=== PATIENT | female | born 2000 | race Two or more races ===

== ENCOUNTER 2024-05-30 22:09 | Emergency (ER) | payer MEDICAID, SELFPAY ==
[2024-05-30 22:11] VITALS: BMI 48.8
[2024-05-30 22:15] VITALS: BP 126/85; PULSE 85; RESP 19; TEMP 37.1; O2SAT 98
--- NOTE | 2024-05-30 22:20 | EDNOTE_ITS ---
ED Animal Bite RME/HPI General Chief Complaint: Animal Bite Stated Complaint: BIT BY CAT LEFT FINGER Time Seen by Provider: 05/30/24 22:12 Source: patient Arrival date/time: 05/30/24 22:09 24-year-old female presents emergency department complaining of cat bite to left second digit. Patient unsure if she is up-to-date with tetanus vaccine. Patient reports cat is her own and denies any abnormal behavior. Mode of arrival: ambulatory Limitations: no limitations Related Data Previous Rx's ?Medication ?Instructions ?Recorded amoxicillin 875 mg-potassium 1 tab PO Q12H #10 tabs 01/20/23 clavulanate 125 mg tablet ferrous sulfate 325 mg (65 mg 325 mg PO BID #60 tabs 01/20/23 iron) tablet hydrocodone 5 mg-acetaminophen 325 1 tab PO Q6H PRN pain #20 tabs 01/20/23 mg tablet levothyroxine 100 mcg capsule 100 mcg PO QDAY #90 caps 01/20/23 amoxicillin 875 mg-potassium 1 tab PO BID 7 days #14 tabs 05/30/24 clavulanate 125 mg tablet Allergies Allergy/AdvReac Type Severity Reaction Status Date / Time latex Allergy Mild Hives Verified 01/20/23 19:58 Review of Systems Review of Systems Systems Reviewed: All systems reviewed, normal except as documented Constitutional Constitutional: Reports system reviewed and no additional complaints, except as documented, Denies body ache(s), Denies chills and Denies fever(s) Eyes Eyes: Reports system reviewed and no additional complaints, except as documented and Denies change in vision ENT Ears, Nose, Mouth, and Throat: Reports system reviewed and no additional complaints, except as documented, Denies disequilibrium, Denies dizziness, Denies sore throat and Denies vertigo Cardiovascular Cardiovascular: Reports system reviewed and no additional complaints, except as documented, Denies chest pain and Denies dyspnea Respiratory Respiratory: Reports system reviewed and no additional complaints, except as documented, Denies chest congestion, Denies cough and Denies dyspnea Gastrointestinal Gastrointestinal: Reports system reviewed and no additional complaints, except as documented, Denies abdominal pain, Denies nausea and Denies vomiting Musculoskeletal Musculoskeletal: Reports system reviewed and no additional complaints, except as documented, Denies abnormal gait and Denies arthralgias Integumentary/Breasts Skin/Breast: Reports system reviewed and no additional complaints, except as documented, Denies erythema, Denies rash and Reports wounds (Cat bite) Neurologic Neurologic: Reports system reviewed and no additional complaints, except as documented, Denies abnormal gait, Denies disequilibrium, Denies dizziness and Denies vertigo Past Medical History Past Medical History NEUROLOGIC: Negative Neurological Disorders CARDIAC: Negative Cardiac Disorders or Congestive Heart Failure RESPIRATORY: Negative Chronic Obstructive Pulmonary Disease (COPD) GASTROINTESTINAL: Positive Gastrointestinal Disorders and Gall Bladder Disease (REMOVED 2019) GENITOURINARY: Negative Genitourinary Disorders or Renal Disease MUSCULOSKELETAL: Negative Musculoskeletal Disorders ENDOCRINE: Positive Endocrine Disorders and Hypothyroidism; Negative Diabetes Mellitus Type 1 or Diabetes Mellitus Type 2 HEMATOLOGIC: Negative Blood Disorders PSYCHO/SOCIAL: Positive Anxiety (NO MEDS) and Attention Deficit Hyperactivity Disorder OTHER HISTORY: Positive Hospitalization and Communicable Disease; Negative Autoimmune Disease Family History FAMILY HISTORY: Positive Family Psychiatric Problems (SISTER - ANXIETY), Family Cardiac Disorders (SISTER CONGENITAL HEART PROBLEM, FATHER HEART ATTACK), Family Cancer (PATERNAL GRANDMOTHER-BREAST CA) and Family Surgery (SISTER HEART SURGERY); Negative Family Respiratory Disorders, Family Gastrointestinal Problems or Family Anesthesia Reaction Surgical History SURGICAL: Negative Section Social History SMOKING STATUS: Never smoker SUBSTANCE USE: does not use ED Exam General Limitations: Present no limitations General appearance: Present alert and in no apparent distress Head Head exam: Present atraumatic Eye Eye exam: Present normal appearance, PERRL and EOMI ENT ENT exam: Present normal exam, normal oropharynx and mucous membranes moist Neck Neck exam: Present normal inspection, full ROM and trachea midline Chest Chest inspection: Present normal inspection and symmetric chest wall rise Respiratory Respiratory exam: Present normal lung sounds bilaterally Cardiovascular Cardiovascular exam: Present regular rate, normal rhythm and normal heart sounds Abdominal Exam Abdominal exam: Present soft and normal bowel sounds Extremities Exam Extremities exam: Present normal inspection and full ROM Expanded Upper Extremity Exam Hand L/R front image: 2 1. abrasion (Small superficial abrasion with no active bleeding) Vascular exam: Normal capillary refill Back Exam Back exam: Present normal inspection and full ROM Neurological Exam Neurological exam: Present alert, oriented X3 and CN II-XII intact Psychiatric Psychiatric exam: Present normal affect and normal mood Skin Skin exam: Present warm, dry and normal color Course Quality Measures none Orders Category Date Time Status Wound Care [Wound Care] NOW Care 05/30/24 22:20 Completed Tet,Diphth,Pertuss(Acell)-Tdap [Boostrix Vacc] Med 05/30/24 22:20 Discontinued 0.5 ml IMI .ONCE ONE Vital Signs Vital signs: Vital Signs Temperature 98.8 F 05/30/24 22:15 Pulse Rate 85 05/30/24 22:15 Respiratory Rate 19 05/30/24 22:15 Blood Pressure 126/85 H 05/30/24 22:15 Pulse Oximetry (%) 98 05/30/24 22:15 Oxygen Delivery Method Room Air 05/30/24 22:15 98% room air within normal limits Animal Bite MDM Narrative MDM Narrative:: 24-year-old female presents emergency department complaining of cat bite to left second digit. Patient unsure if she is up-to-date with tetanus vaccine. Patient reports cat is her own and denies any abnormal behavior. Cat bite was superficial with 1 small abrasion to left second digit. Patient's left hand neurovascularly intact. Patient given tetanus vaccine and discharged home on Augmentin antibiotic Patient instructed to follow-up with primary care provider in 24 to 48 hours and return to emergency department for any worsening symptoms or as needed. Patient data External records reviewed:: [facility] previous records Clinical information provided by:: patient Social determinants that could affect healthcare access:: none Patient has the following chronic illnesses:: See chart How is presenting disease/condition affected by chronic disease/condition?: u neffected by Evaluation data The following diagnostics were reviewed and interpreted by me:: other (specify) (N/A) Lab and/or radiology exams considered but not ordered:: N/A Interpretation Summary: N/A Medications / Prescriptions Medications or Prescriptions considered but not ordered:: Ordered Medication administrations:: Medication Administration History Discontinued Medications Diphtheria/Tetanus/Acell Pertussis (Diphth,Pertuss(Acell),Tet Vac 0.5 Ml Vial) 0.5 ml IMi .ONCE ONE Stop: 05/30/24 22:21 Last Admin: 05/30/24 22:32 Dose: 0.5 ml Documented By: OA Given Consultations Consultation(s) initiated? (list below): No Diagnosis Differential diagnosis animal bite: cat bite Most likely diagnosis given after review of the tests above:: Cat bite Admission Indicated Admission indicated?: not indicated Admission Request Was there a request for admission?: No Disposition Plan Disposition Plan: Discharge Discharge Attestation Discharge Attestation: The patient and all family members were given an opportunity to ask questions and understood the discharge instructions. Discharge instructions specifically effects, indications for sooner follow up or return to the emergency department, and the expected course of current diagnosis. Patient condition: Stable Discharge Plan Plan Patient Disposition: HOME (Self Care) Disposition Comment: Stable Prescriptions/Referrals Prescriptions/Med Rec: New amoxicillin-pot clavulanate 875-125 mg tablet 1 tab PO BID 7 Days Qty: 14 0RF No Action levothyroxine 100 mcg capsule 100 mcg PO QDAY Qty: 90 3RF amoxicillin-pot clavulanate 875-125 mg tablet 1 tab PO Q12H Qty: 10 0RF hydrocodone-acetaminophen 5-325 mg tablet 1 tab PO Q6H MDD 4 PRN (Reason: pain) Qty: 20 0RF ferrous sulfate 325 mg (65 mg iron) tablet 325 mg PO BID Qty: 60 1RF Problem List Clinical Impression: Cat bite Patient/Caregiver Discharge Instructions Education Materials: ED Cat Bite Additional Instructions: Take medication as prescribed. Follow-up with primary care provider in 2 to 3 days. Return to the emergency department for any worsening signs of infection or as needed. Print Language: [place]an Stand Alone Forms: Althea Award Info., Patient Portal Info Letter PA/EDUCATION ADMINISTRATIVE ASSISTANT Supervising Physician PA/NUNO Supervising Physician: Dr. Parks
[2024-05-30] MEDS: DIPHTH,PERTUSS(ACELL),TET VAC 0.5 ML VIAL IMi (22:32)
== END 2024-05-30 22:38 | disposition home or self-care (01) ==
LOC: SERX 23:39
PROVIDERS: Emergency Provider Emergency Medicine; PCP Nurse Practitioner Family
DX: S60.411A Abrasion of left index finger, initial encounter (principal); W55.01XA Bitten by cat, initial encounter; Z23 Encounter for immunization
CPT/HCPCS: 90471; 90715; 99282

== ENCOUNTER → 2024-06-25 23:35 | Emergency (ER) | payer MEDICAID, SELFPAY ==
--- NOTE | 2024-06-25 23:44 | PC.NURSE ---
WHILE PUTTING PT IN , SHE DECIDED NOT TO BE SEEN.
== END | disposition left against medical advice (07) ==
PROVIDERS: Emergency Provider Emergency Medicine
DX: Z53.21 Procedure and treatment not carried out due to patient leaving prior to being seen by health care provider (principal)

== ENCOUNTER 2025-02-10 00:38 | Emergency (ER) | payer MEDICAID, SELFPAY ==
[2025-02-10 00:39] VITALS: BMI 41.3
--- NOTE | 2025-02-10 01:16 | PC.NURSE ---
LAURE PT COMES UP TO FIG CAPRIFIER STATING SHE WILL SEE HER PRIMARY CARE IN THE MORNING
== END 2025-02-10 01:17 | disposition left against medical advice (07) ==
LOC: SERX 01:58
PROVIDERS: Emergency Provider Emergency Medicine
DX: Z53.21 Procedure and treatment not carried out due to patient leaving prior to being seen by health care provider (principal)
CPT/HCPCS: 99282

== ENCOUNTER 2025-04-26 12:34 | Emergency (ER) | payer MEDICAID, SELFPAY ==
[2025-04-26 12:34] VITALS: BMI 39.6
[2025-04-26 12:50] VITALS: BP 112/84; PULSE 99; RESP 19; TEMP 37.2; O2SAT 98
--- NOTE | 2025-04-26 13:06 | XR_ITS ---
Examination: Abdomen sonogram, Limited Date and time of exam: April 26, 2025, 1336 hours INDICATIONS: Onset epigastric pain today Technique: Real-time spence scale transabdominal sonographic images of the upper abdomen obtained. Findings: No diagnostic visualization gallbladder Common bile duct 0.3 cm no stones Pancreatic head 2.2 cm Liver 14.2 cm lobular contour fatty infiltration Normal hepatopetal portal venous flow Patent IVC IMPRESSION: No diagnostic visualization of gallbladder No common bile duct stones Suspect primary Protos low-grade disease
--- NOTE | 2025-04-26 13:07 | EDRME_ITS ---
Rapid Medical Screening Exam [facility] Arrival date/time: 04/26/25 12:34 23-year-old female with history of hypothyroidism as well as being on Zepbound presents to the emergency department complaints of upper abdominal pain and chest pain patient worsened to onset yesterday. Chief Complaint: Chest Pain Time Seen by Provider: 04/26/25 13:39 Vital signs: Vital Signs Temperature 99.0 F 04/26/25 12:50 Pulse Rate 99 04/26/25 12:50 Respiratory Rate 19 04/26/25 12:50 Blood Pressure 112/84 04/26/25 12:50 Pulse Oximetry (%) 98 04/26/25 12:50 Oxygen Delivery Method Room Air 04/26/25 12:50
[2025-04-26] MEDS: IBUPROFEN TAB 400 MG TABLET 800 MG PO (13:11)
[2025-04-26] MEDS: ONDANSETRON ODT 4 MG TABRAP PO (13:11)
[2025-04-26 13:55] LABS: Collection Type, Urine Clean Catch
[2025-04-26 13:56] LABS: Basophils # (Auto) 0.0 Thou/mm3 (0.0-0.2); Basophils % (Auto) 0 % (0-2.5); Eosinophils # (Auto) 0.1 Thou/mm3 (0.0-0.5); Eosinophils % (Auto) 0 % (0-10); Hematocrit 39.7 % (36.0-46.0); Hemoglobin 13.8 g/dL (12.0-16.0); Immature Granulocytes Auto 0.02 Thou/mm3 (0.00-0.00); Lymphocytes # (Auto) 1.3 Thou/mm3 (1.0-4.8); Lymphocytes % (Auto) 10 % (10-50); Mean Corpuscular HGB Conc 34.8 g/dl (31.0-37.0); Mean Corpuscular Hemoglobin 29.6 pg (25.0-35.0); Mean Corpuscular Volume 85 fL (80-100); Monocytes # (Auto) 0.6 Thou/mm3 (0.0-0.8); Monocytes % (Auto) 5 % (0-12); Neutrophils # (Auto) 10.1 Thou/mm3 (1.8-7.7); Neutrophils % (Auto) 84 % (37-80); Nucleated Red Blood Cell # 0.00 Thou/mm3 (0.00-0.00); Nucleated Red Blood Cell % 0 /100 WBC (0); Platelet Count 247 Thou/mm3 (140-440); RDW Standard Deviation 37.6 fL (36.4-46.3); Red Blood Count 4.67 Miln/mm3 (4.00-5.20); White Blood Count 12.1 Thou/mm3 (3.6-11.0)
[2025-04-26 14:08] LABS: HCG Qualitative,Urine Negative
[2025-04-26 14:12] LABS: Bacteria,Urine Rare; Bilirubin,Urine Negative (Negative); Blood,Urine Negative (Negative); Clarity,Urine Clear (Clear/Hazy); Color,Urine Yellow (Lt Yel-Yel); Culture Indicated,Urine Not Indicated; Glucose, Urine Negative (Negative); Ketones,Urine Negative (Negative); Leukocyte Esterase,Urine Negative (Negative); Nitrite,Urine Negative (Negative); PH,Urine 6.0 (5.0-7.0); Protein,Urine Trace (Neg - Trace); RBC,Urine 3 /hpf (0-3); Specific Gravity,Urine 1.026 (1.001-1.035); Squamous Epithelial Cell,Urine 11 /hpf (0-5); Urobilinogen,Urine 2.0 mg/dL (0.0-1.0); WBC,Urine 4 /hpf (0-5)
[2025-04-26 14:15] LABS: Alanine Aminotransferase 22 U/L (10-49); Albumin, Serum 4.8 gm/dL (3.5-5.0); Albumin/Globulin Ratio 1.6 (1.2-2.2); Alkaline Phosphatase 75 U/L (46-116); Anion Gap 10 (7-16); Aspartate Amino Transferase 31 U/L (0-34); BUN/Creatinine Ratio 9 Ratio (12-20); Bilirubin,Total 1.8 mg/dL (0.3-1.2); Blood Urea Nitrogen 7 mg/dL (9-23); Calcium 9.5 mg/dL (8.3-10.6); Calcium (Corrected) 9.5 mg/dL (8.5-10.1); Carbon Dioxide 24.1 mMol/L (20.0-31.0); Chloride 105 mMol/L (98-107); Creatinine (Component) 0.8 mg/dL (0.6-1.3); Estimated Creatinine Clearance 110.7 mL/min (>60); Globulin 3.0 gm/dL (2.3-3.5); Glucose 93 mg/dL (74-106); Lipase 25 U/L (12-53); Osmolality,Calculated 275 (275-295); Potassium 4.1 mMol/L (3.4-5.1); Sodium 139 mMol/L (136-145); Total Protein 7.8 gm/dL (5.7-8.2); Troponin I < 0.002 ng/mL (0.0-0.045); eGFR > 60 See Note
--- NOTE | 2025-04-26 17:15 | EKG_ITS ---
[facility] Test Date: 2025-04-26 Pat Name: LETTY MARTIN Department: Room: - Gender: Female Event Attendant: : 2000 Requested By: Jeronimo Jewell Order Number: [id number] Reading MD: Jeronimo Jewell Measurements Intervals Clark Rate: 69 P: 20 MS: 148 QRS: 23 QRSD: 87 T: 29 QT: 411 QTc: 443 Interpretive Statements SINUS RHYTHM LOW QRS VOLTAGE IN PRECORDIAL LEADS [QRS DEFLECTION < 1.0 mV IN CHEST LEADS] Compared to ECG 01/19/2023 11:44:39 Low QRS voltage now present Sinus tachycardia no longer present Myocardial infarct finding no longer present /store/S0/[id number]/ecg/[id number].pdf
--- NOTE | 2025-04-26 17:16 | PD.EDCHEST ---
ED Chest Pain RME/HPI General Chief Complaint: Chest Pain Stated Complaint: VOMITING WITH CHEST PAIN SINCE THIS AM Time Seen by Provider: 04/26/25 13:39 Arrival date/time: 04/26/25 12:34 RME / HPI RME / HPI narrative: 04/26/25 12:34 23-year-old female with history of hypothyroidism, cholecystectomy, obesity on Zepbound presents to the emergency department complaints of upper abdominal pain radiating to her chest patient which began yesterday when she was laying in bed associated with nausea vomiting without bilious or bloody substances, shortness of breath. Denies diarrhea, urinary symptoms. Patient's LMP was 1 month ago. Family history of hypoplastic heart for her siste Related Data Previous Rx's ?Medication ?Instructions ?Recorded amoxicillin 875 mg-potassium 1 tab PO Q12H #10 tabs 01/20/23 clavulanate 125 mg tablet ferrous sulfate 325 mg (65 mg 325 mg PO BID #60 tabs 01/20/23 iron) tablet hydrocodone 5 mg-acetaminophen 325 1 tab PO Q6H PRN pain #20 tabs 01/20/23 mg tablet levothyroxine 100 mcg capsule 100 mcg PO QDAY #90 caps 01/20/23 famotidine 20 mg tablet (Pepcid) 20 mg PO BID #30 tabs 04/26/25 ondansetron 4 mg disintegrating 4 mg PO Q8H PRN nausea and 04/26/25 tablet vomiting #12 tabs Allergies Allergy/AdvReac Type Severity Reaction Status Date / Time latex Allergy Mild Hives Verified 04/26/25 12:37 ED Exam Narrative Physical exam: Constitutional: Patient alert and oriented. Well appearing. No acute distress. Not toxic appearing. Head: Normocephalic, atraumatic. Eyes: Periorbital regions bilaterally normal to inspection. Conjunctiva clear bilaterally. Sclera anicteric bilaterally. Pupils equal, round, reactive to light bilaterally. Extraocular movements intact bilaterally. Mouth/Throat: Mucous membranes moist. No stridor or muffled voice. No trismus. Handling secretions without difficulty. Airway widely patent. Neck: Supple. Trachea midline. No JVD. No nuchal rigidity. Normal range of motion. Respiratory: Normal effort. No accessory muscle use or respiratory distress. Lungs clear to auscultation bilaterally without rhonchi, wheezes, or crackles. Cardiovascular: RRR. Normal S1/S2. No murmurs or rubs. Radial pulses intact bilaterally. Abdomen: Soft. Non-distended. Positive mild epigastric tenderness to palpation.. No pulsatile mass. No guarding or rebound. Negative Kilpatrick?s sign. Negative McBurney?s point tenderness. Negative Rovsing?s. Back: No midline tenderness or step-offs. No CVA tenderness to palpation bilaterally. Upper Extremities: No gross deformities. Lower Extremities: No gross deformities. No edema or calf tenderness. Neuro: Speech normal. No gross motor or sensory deficits to upper or lower extremities bilaterally. GCS 15. CN II?XII grossly intact. Skin: Warm, dry, normal color. Psych: Normal affect. Cooperative. Normal insight. Course Course Course Narrative: MDM The patient presents with epigastric pain radiating to chest of unclear etiology. Evaluation today has not identified an emergent cause however it may be related to GERD vs gastritis. Differential diagnosis includes musculoskeletal chest pain, gastroenteritis, bronchial pleurisy, costochondritis, and thoracic radiculopathy. Patient's symptoms initially were unrelieved with ibuprofen however her nausea was controlled with Zofran however status post migraine cocktail patient's symptoms have resolved Given the benign abdominal exam and lack of significant risk factors, I have very low suspicion for strangulated or incarcerated hernia (no skin changes or irreducible mass), perforation (no abrupt pain or peritonitis), small bowel obstruction/volvulus (no peritoneal signs), AAA/dissection (no pulsatile mass, extremities warm bilaterally), mesenteric ischemia (no history of vascular disease, atrial fibrillation, postprandial pain, or blood in stool), acute infectious processes such as appendicitis or abscess (no peritonitis), or any other life-threatening disease. Serial abdominal exams were benign throughout the ED stay, and the patient tolerated oral intake without difficulty. Less likely etiologies include: PE: Wells low risk, PERC negative. ACS: HEART Score low risk, suggesting low probability of major adverse cardiac event in the next 6 weeks. Aortic Dissection: Unlikely given palpable pulses, warm extremities bilaterally, and no radiation of pain. Tamponade: Unlikely given absence of hypotension, muffled heart sounds, JVD, friction rub, narrow pulse pressure ?30, low-voltage EKG, or enlarged cardiac silhouette. Endocarditis: Unlikely as no Escobedo criteria present (Candelaria spots, splinter hemorrhages, Osler nodes). CHF: Unlikely given no JVD, peripheral edema, or orthopnea. The patient is clinically well-appearing and stable. Evaluation today does not suggest cardiac ischemia, pulmonary embolism, aortic dissection, or other life-threatening etiology. These diagnoses were considered and excluded clinically and with appropriate studies. Nonetheless, it is understood by both patient and provider that no evaluation can entirely exclude such conditions. I considered CT imaging and admission; however, given the negative workup today, stable appearance, and absence of peritoneal signs, the risks outweigh the benefits at this time. The option of CT scan now versus home observation with close follow-up was discussed extensively with the patient. After reviewing risks?including missed diagnosis, inadequate treatment, worsening illness, disability, or potentially life-threatening consequences?the patient declined CT at this time. This decision is reasonable given the current presentation. The patient has been instructed to return for mandatory re-evaluation within 1 day and to seek care immediately if symptoms persist, worsen, or change in any way. The patient may follow up with their primary care provider or return to the ED as appropriate. The patient appears stable for discharge at this time. Strict ER return precautions advised for any continued, worsening, or new symptoms or any concerns at all. Quality Measures none Orders Category Date Time Status EKG (ED ONLY) *Do not use* NOW Care 04/26/25 17:15 Completed EKG (ED Only) Stat Exams 04/26/25 17:15 Draft US gall bladder Stat Exams 04/26/25 13:06 Completed XR chest 1V Stat Exams 04/26/25 17:37 Completed CBC Stat Lab 04/26/25 10:35 Completed Comprehensive Metabolic Panel Stat Lab 04/26/25 10:35 Completed HCG Qualitative,Urine Stat Lab 04/26/25 13:30 Completed Lipase Stat Lab 04/26/25 10:35 Completed Troponin I Stat Lab 04/26/25 10:35 Completed UA, C/S IF [Urinalysis, C/S if Indicated] Stat Lab 04/26/25 13:30 Completed Ibuprofen Tab [Motrin Tab] Med 04/26/25 13:06 Discontinued 800 mg PO X1 ONE Lidocaine 2% Viscous [Xylocaine 2% Viscous] Med 04/26/25 17:13 Discontinued 15 ml PO X1 ONE Metoclopramide [Reglan] Med 04/26/25 17:13 Discontinued 10 mg PO X1 ONE Ondansetron Odt [Zofran Odt] Med 04/26/25 13:06 Discontinued 4 mg PO X1 ONE mg Hyd/Al Hyd/Meredith Susp [Maalox Susp] Med 04/26/25 17:13 Discontinued 30 ml PO X1 ONE Reevaluation(s) Reevaluation #1: At the time of reassessment, the patient remains alert and oriented ?3 with GCS 15. Vitals are normal, pain is controlled, and the patient is tolerating oral intake without nausea or vomiting. The patient is agreeable to discharge and verbalizes understanding of the diagnosis, studies, treatment plan, medications (including side effects/precautions), and strict ER return precautions as discussed in the ED. All concerns were addressed, and the patient is comfortable with the plan. Serial abdominal exams benign without peritonitis. Vital Signs Vital signs: Vital Signs Temperature 99.0 F 04/26/25 12:50 Pulse Rate 99 04/26/25 12:50 Respiratory Rate 19 04/26/25 12:50 Blood Pressure 112/84 04/26/25 12:50 Pulse Oximetry (%) 98 04/26/25 12:50 Oxygen Delivery Method Room Air 04/26/25 12:50 PROCEDURES: EKG Interpretation #1: Date of EK04/26/25 Time of EK:41 Rate: 69 Interpretation: Interpreted by me EKG Impression: Normal sinus rhythm Additional EKG comment: [address] elevation or T wave inversions good R wave progression Chest Pain MDM Narrative MDM Narrative:: Concern for mild leukocytosis with a white count of 12.1 Lipase within normal limits and troponin undetectable CMP notable for elevated total bilirubin at 1.8 however AST, ALT, alk phos all within normal limits patient has a history of a cholecystectomy doubt acute hepatobiliary obstruction or residual choledocholithiasis Patient data External records reviewed:: [facility] previous records Clinical information provided by:: none Social determinants that could affect healthcare access:: none Patient has the following chronic illnesses:: As noted How is presenting disease/condition affected by chronic disease/condition?: no chronic disease Evaluation data The following diagnostics were reviewed and interpreted by me:: lab results, radiology exam(s) and EKG tracing(s) Lab and/or radiology exams considered but not ordered:: Additional Labs and radiology considered, but not ordered as they were not clinically indicated at this time. Interpretation Summary: As noted Medications / Prescriptions Medications or Prescriptions considered but not ordered:: I considered prescription management (both outpatient prescriptions AND drug treatment in the ER) and decided that this was necessary and was prescribed as charted. Medication administrations:: Medication Administration History Discontinued Medications Al Hydrox/Mg Hydrox/Simethicone (Mg Hyd/Al Hyd/Meredith (Maalox Reg) Susp 30 Ml Udc) 30 ml PO X1 ONE Stop: 04/26/25 17:14 Last Admin: 04/26/25 17:26 Dose: 30 ml Documented By: BY Ibuprofen (Ibuprofen Tab 400 Mg Tablet) 800 mg PO X1 ONE Stop: 04/26/25 13:07 Last Admin: 04/26/25 13:11 Dose: 800 mg Documented By: EF Lidocaine HCl (Lidocaine Viscous 2% 15 Ml Udc) 15 ml PO X1 ONE Stop: 04/26/25 17:14 Last Admin: 04/26/25 17:26 Dose: 15 ml Documented By: BY Metoclopramide HCl (Metoclopramide Liqd 10 Mg/10 Ml Udc) 10 mg PO X1 ONE Stop: 04/26/25 17:14 Last Admin: 04/26/25 17:27 Dose: 10 mg Documented By: BY Ondansetron HCl (Ondansetron Odt 4 Mg Tabrap) 4 mg PO X1 ONE; Protocol Stop: 04/26/25 13:07 Last Admin: 04/26/25 13:11 Dose: 4 mg Documented By: EF As noted Consultations Consultation(s) initiated? (list below): No Diagnosis Chest Pain Differential Diagnosis: chest pain Most likely diagnosis given after review of the tests above:: Undifferentiated abdominal pain and chest pain likely secondary to GERD Admission Indicated Admission indicated?: not indicated Admission Request Was there a request for admission?: No Disposition Plan Disposition Plan: Discharge Discharge Attestation Discharge Attestation: The patient and all family members were given an opportunity to ask questions and understood the discharge instructions. Discharge instructions specifically effects, indications for sooner follow up or return to the emergency department, and the expected course of current diagnosis. Patient condition: Stable Discharge Plan Plan Patient Disposition: HOME (Self Care) Patient condition on transfer: Stable Prescriptions/Referrals Prescriptions/Med Rec: New famotidine [Pepcid] 20 mg tablet 20 mg PO BID Qty: 30 0RF ondansetron 4 mg tablet,disintegrating 4 mg PO Q8H PRN (Reason: nausea and vomiting) Qty: 12 0RF Rx Instructions: 1-2 tabs PO Q8Hr prn nausea or vomit No Action levothyroxine 100 mcg capsule 100 mcg PO QDAY Qty: 90 3RF amoxicillin-pot clavulanate 875-125 mg tablet 1 tab PO Q12H Qty: 10 0RF hydrocodone-acetaminophen 5-325 mg tablet 1 tab PO Q6H MDD 4 PRN (Reason: pain) Qty: 20 0RF ferrous sulfate 325 mg (65 mg iron) tablet 325 mg PO BID Qty: 60 1RF Referrals: Jackie Lucas FNP-C [Primary Care Provider] - In 1 week Problem List Clinical Impression: Chest pain, Abdominal pain Patient/Caregiver Discharge Instructions Education Materials: Abdominal Pain, ED Chest Pain, Uncertain Cause Additional Instructions: Follow up with your primary medical doctor within 24 hours. Return to the Emergency Room immediately for any new, worsening, continuing symptoms or any concerns at all. Return to the Emergency Room within 24 hours if you are unable to follow up with your primary medical doctor within 24 hours. Print Language: Belizean Stand Alone Forms: Althea Award Info., Patient Portal Info Letter PA/NUNO Supervising Physician CHAVEZ/NUNO Supervising Physician: Dr. Wilkins
[2025-04-26] MEDS: LIDOCAINE VISCOUS 2% 15 ML UDC PO (17:26)
[2025-04-26] MEDS: MG HYD/AL HYD/SIME (Maalox Reg) SUSP 30 ML UDC PO (17:26)
[2025-04-26] MEDS: METOCLOPRAMIDE LIQD 10 MG/10 ML UDC PO (17:27)
--- NOTE | 2025-04-26 17:37 | XR_ITS ---
EXAMINATION: PA chest single view TECHNIQUE: Upright PA chest single view Date and time: April 26, 2025, 1848 hours, comparison January 19, 2023 INDICATIONS: Chest pain shortness of breath today FINDINGS: Normal heart size Lungs are clear. The osseous structures are intact IMPRESSION: No active disease
[2025-04-26 20:00] VITALS: BP 111/76; PULSE 83; RESP 17; TEMP 37.3; O2SAT 100
== END 2025-04-26 20:03 | disposition home or self-care (01) ==
PROVIDERS: Nurse Practitioner Primary Care; Emergency Provider Emergency Medicine; PCP Nurse Practitioner Family
DX: R07.9 Chest pain, unspecified (principal); R10.9 Unspecified abdominal pain
CPT/HCPCS: 36415; 71045; 76705; 80053; 81001; 81025; 83690; 84484; 84703; 85025; 93005; 99283; J3490; Q0162; A9270

== ENCOUNTER 2025-05-14 20:28 | Emergency (ER) | payer MEDICAID, SELFPAY ==
[2025-05-14 20:28] VITALS: BMI 39.6
[2025-05-14 21:04] VITALS: BP 128/88; PULSE 86; RESP 16; TEMP 36.8; O2SAT 98
--- NOTE | 2025-05-14 21:04 | EDNOTE_ITS ---
ED General RME/HPI General Chief complaint: Urogenital-Female Stated complaint: DISCOMFORT IN PRIVATE AREA Time Seen by Provider: 05/14/25 20:50 Arrival date/time: 05/14/25 20:28 CC: Low abdominal pressure and pain with urination urinary urgency and dribbling. Onset 3 days ago denies fever chills last menstrual cycle ended May 01. No other complaints. Denies fever shortness of breath difficulty breathing back pain or upper abdominal pain. Related Data Previous Rx's ?Medication ?Instructions ?Recorded amoxicillin 875 mg-potassium 1 tab PO Q12H #10 tabs clavulanate 125 mg tablet ferrous sulfate 325 mg (65 mg 325 mg PO BID #60 tabs 0 01/20/23 iron) tablet hydrocodone 5 mg-acetaminophen 325 1 tab PO Q6H PRN pa in #20 tabs 01/20/23 mg tablet levothyroxine 100 mcg capsule 100 mcg PO QDAY #90 caps 01/20/23 famotidine 20 mg tablet (Pepcid) 20 mg PO BID #30 tabs 04/26/25 ondansetron 4 mg disintegrating 4 mg PO Q8H PRN nausea and 04/26/25 tablet vomiting #12 tabs cephalexin 500 mg capsule 500 mg PO BID #14 caps 05/14 Allergies Allergy/AdvReac Type Severity Reaction Status Date / Time latex Allergy Mild Hives Verified 04/26/25 12:37 Review of Systems Review of Systems Narrative Review of Systems: GEN: No fever, no chills, no weight loss EYES: No discharge, no visual changes, no pain HEENT: No ear pain, no congestion, no sore throat PULM: No shortness of breath, no cough, no congestion CV: No chest pain, no dyspnea on exertion, no palpitations GI: No nausea, no vomiting, no diarrhea, no pain, no constipation : No frequency, no urgency, no dysuria MUSC/SKEL: No joint pain, no back pain SKIN: No rash PSYCH: No hallucinations, no depression HEME/LYMPH: No easy bleeding or bruising tendencies NEURO: No weakness, no headache Past Medical History Past Medical History NEUROLOGIC: Negative Neurological Disorders CARDIAC: Negative Cardiac Disorders or Congestive Heart Failure RESPIRATORY: Negative Chronic Obstructive Pulmonary Disease (COPD) GASTROINTESTINAL: Positive Gastrointestinal Disorders and Gall Bladder Disease (REMOVED 2019) GENITOURINARY: Negative Genitourinary Disorders or Renal Disease MUSCULOSKELETAL: Negative Musculoskeletal Disorders ENDOCRINE: Positive Endocrine Disorders and Hypothyroidism; Negative Diabetes Mellitus Type 1 or Diabetes Mellitus Type 2 HEMATOLOGIC: Negative Blood Disorders PSYCHO/SOCIAL: Positive Anxiety (NO MEDS) and Attention Deficit Hyperactivity Disorder OTHER HISTORY: Positive Hospitalization and Communicable Disease; Negative Autoimmune Disease Family History FAMILY HISTORY: Positive Family Psychiatric Problems (SISTER - ANXIETY), Family Cardiac Disorders (SISTER CONGENITAL HEART PROBLEM, FATHER HEART ATTACK), Family Cancer (PATERNAL GRANDMOTHER-BREAST CA) and Family Surgery (SISTER HEART SURGERY); Negative Family Respiratory Disorders, Family Gastrointestinal Problems or Family Anesthesia Reaction Surgical History SURGICAL: Negative Section Social History SMOKING STATUS: Never smoker SUBSTANCE USE: does not use ED Exam Narrative Physical exam: [General: Obese not in any acute distress Head normocephalic HEENT: Within acceptable limits Neck is supple nontender Chest equal chest rise nontender to palpation Respiratory: Clear to auscultation no wheezes crackles or rubs CV: Rate rhythm is regular no murmurs rubs or clicks Abdomen is distended secondary to body habitus soft nontender no masses positive bowel sounds all 4 quadrants Back: No CVA tenderness no spinous process tenderness from cervical spine thoracic and lumbar spine Skin: Intact no petechiae rash induration ulceration or crepitus Extremities: Moving all extremity against resistance cap refill less than 2 seconds neurosensory intact Neuro: Awake alert oriented x3 Glascow coma 15 no focal deficits] Course Quality Measures none Orders Category Date Time Status HCG Qualitative,Urine Stat Lab 05/14/25 21:42 Completed Urinalysis Stat Lab 05/14/25 21:42 Completed Vital Signs Vital signs: Vital Signs Temperature 98.3 F 05/14/25 21:04 Pulse Rate 86 05/14/25 21:04 Respiratory Rate 16 05/14/25 21:04 Blood Pressure 128/88 H 05/14/25 21:04 Pulse Oximetry (%) 98 05/14/25 21:04 Oxygen Delivery Method Room Air 05/14/25 21:04 Discharge Plan Plan Patient Disposition: HOME (Self Care) Patient condition on transfer: Stable Prescriptions/Referrals Prescriptions/Med Rec: New cephalexin 500 mg capsule 500 mg PO BID Qty: 14 0RF No Action famotidine [Pepcid] 20 mg tablet 20 mg PO BID Qty: 30 0RF ondansetron 4 mg tablet,disintegrating 4 mg PO Q8H PRN (Reason: nausea and vomiting) Qty: 12 0RF Rx Instructions: 1-2 tabs PO Q8Hr prn nausea or vomit levothyroxine 100 mcg capsule 100 mcg PO QDAY Qty: 90 3RF amoxicillin-pot clavulanate 875-125 mg tablet 1 tab PO Q12H Qty: 10 0RF hydrocodone-acetaminophen 5-325 mg tablet 1 tab PO Q6H MDD 4 PRN (Reason: pain) Qty: 20 0RF ferrous sulfate 325 mg (65 mg iron) tablet 325 mg PO BID Qty: 60 1RF Referrals: Dima Zapata MD [Physician, Family Practice] - In 1 week Problem List Clinical Impression: Urinary tract infection Patient/Caregiver Discharge Instructions Other Activity Instructions:: Take the medications as prescribed until completely gone drink plenty of water. Follow-up with your primary care doctor. Education Materials: ED CYSTITIS Female Adult Print Language: Bahamian Stand Alone Forms: Althea Award Info., Patient Portal Info Letter, Work/School Release PA/SALVAGE MACHINE OPERATOR Supervising Physician PA/SALVAGE MACHINE OPERATOR Supervising Physician: Jose M Mahoney ENP [facility] Clinical Information Provided by: patient Medical Records reviewed [facility] Meds/Rx considered, not ordered None Labs/Rad/Tests considered, not ordered None Chronic Illness/Social Conditions which may negatively complicate care or outcome(s)-explain: None or not applicable EKG EKG not done Labs Labs: interpreted by hi Lab(s) Interpretation(s): Urine positive for UTI urinary tract infection Imaging Imaging interpretation: none
[2025-05-14 21:54] LABS: Collection Type, Urine Clean Catch
[2025-05-14 21:59] LABS: HCG Qualitative,Urine Negative
[2025-05-14 22:07] LABS: Bilirubin,Urine Negative (Negative); Blood,Urine 1+ (Negative); Clarity,Urine Clear (Clear/Hazy); Color,Urine Yellow (Lt Yel-Yel); Glucose, Urine Negative (Negative); Ketones,Urine Negative (Negative); Leukocyte Esterase,Urine Positive (Negative); Nitrite,Urine Negative (Negative); PH,Urine 7.0 (5.0-7.0); Protein,Urine 1+ (Neg - Trace); RBC,Urine 26 /hpf (0-3); Specific Gravity,Urine 1.030 (1.001-1.035); Squamous Epithelial Cell,Urine 5 /hpf (0-5); Urobilinogen,Urine 6.0 mg/dL (0.0-1.0); WBC,Urine 198 /hpf (0-5)
== END 2025-05-14 22:45 | disposition home or self-care (01) ==
LOC: SERX 22:27
PROVIDERS: Registered Nurse General Practice; Emergency Provider Emergency Medicine; PCP Nurse Practitioner Family
DX: N30.90 Cystitis, unspecified without hematuria (principal)
CPT/HCPCS: 81001; 81025; 99282